=== PATIENT | female | born 1945 | race Caucasian/White ===

== ENCOUNTER → 2019-10-22 11:05 | Outpatient (BNVA) | payer BC, MEDICARE, SELFPAY | PROVIDERS: Family Provider Nurse Practitioner Family; Visit Provider Nurse Practitioner Family | DX: E78.5 Hyperlipidemia, unspecified (principal); E03.9 Hypothyroidism, unspecified; E55.9 Vitamin D deficiency, unspecified; I25.10 Atherosclerotic heart disease of native coronary artery without angina pectoris; F17.200 Nicotine dependence, unspecified, uncomplicated | CPT/HCPCS: 80053; 80061; 82306; 84443; 85025 ==

== ENCOUNTER → 2021-04-05 11:35 | Outpatient (BNVA) | payer MEDICARE, SELFPAY | PROVIDERS: Family Provider Nurse Practitioner Family; Visit Provider Nurse Practitioner Family | DX: K59.00 Constipation, unspecified (principal); I50.32 Chronic diastolic (congestive) heart failure | CPT/HCPCS: 74019; 80053; 80061; 84443; 85025 ==

== ENCOUNTER 2021-04-07 15:31 | Observation (INO) | payer MEDICARE, SELFPAY ==
[2021-04-07 16:05] VITALS: BP 106/64; PULSE 67; RESP 19; TEMP 36.7; O2SAT 94
--- NOTE | 2021-04-07 17:22 | CTR_ITS ---
PROCEDURE INFORMATION: Exam: CT Abdomen And Pelvis With Contrast Exam date and time: 04/07/2021 5:22 PM Age: 75 years old Clinical indication: Bloating; Prior surgery; Surgery type: Stents; Additional info: Abd pain, distension TECHNIQUE: Imaging protocol: Computed tomography of the abdomen and pelvis with contrast. Radiation optimization: All CT scans at this facility use at least one of these dose optimization techniques: automated exposure control; mA and/or kV adjustment per patient size (includes targeted exams where dose is matched to clinical indication); or iterative reconstruction. Contrast material: OMNI 300; Contrast volume: 95 ml; Contrast route: INTRAVENOUS (IV); COMPARISON: CR XR abdomen min 2V [id number] 04/05/2021 11:40 AM RADIATION DOSE METRICS: Total DLP (mGy-cm): 964.34 FINDINGS: Lungs: Right lower lobe 2.8 cm spiculated masslike lesion along with a left lower lobe 9.5 mm spiculated nodule, dedicated chest CT advised for further evaluation. Liver: Hepatic steatosis. 14 mm mildly complex cystic lesion in the caudal tip of the liver may reflect metastatic disease. Gallbladder and bile ducts: Normal. No calcified stones. No ductal dilation. Pancreas: Normal. No ductal dilation. Spleen: Normal. No splenomegaly. Adrenal glands: Normal. No mass. Kidneys and ureters: Bilateral benign renal cysts, negative for follow-up advised. Stomach and bowel: Prominent fluid in the colon and small bowel without dilation may reflect an enterocolitis. Diverticulosis without diverticulitis. Moderate hiatal hernia. Appendix: No evidence of appendicitis. Intraperitoneal space: Diffuse omental caking seen throughout the abdomen anteriorly likely reflecting metastatic disease. Large amount of ascites in the abdomen. Vasculature: Unremarkable. No abdominal aortic aneurysm. Lymph nodes: Unremarkable. No enlarged lymph nodes. Urinary bladder: Unremarkable as visualized. Reproductive: 13.5 x 10.2 cm solid and cystic masslike lesion is seen which may be part of the same process suggestive of an ovarian malignancy. Bones/joints: Unremarkable. No acute fracture. Soft tissues: Unremarkable. Other findings: Emphysematous changes. CT/CT abdomen pelvis w con* [id number] IMPRESSION: 1. 13.5 x 10.2 cm solid and cystic masslike lesion is seen which may be part of the same process suggestive of an ovarian malignancy. 2. Diffuse omental caking seen throughout the abdomen anteriorly likely reflecting metastatic disease. 3. Prominent fluid in the colon and small bowel without dilation may reflect an enterocolitis. 4. Right lower lobe 2.8 cm spiculated masslike lesion along with a left lower lobe 9.5 mm spiculated nodule, dedicated chest CT advised for further evaluation. 5. Emphysematous changes. 6. Large amount of ascites in the abdomen. 7. Hepatic steatosis. 8. Bilateral benign renal cysts, negative for follow-up advised. 9. Diverticulosis without diverticulitis. 10. 14 mm mildly complex cystic lesion in the caudal tip of the liver may reflect metastatic disease. 11.Moderate hiatal hernia. Radiation Dose CTDIVOL = (mGy): DLP = 964.34 (mGy-cm)
--- NOTE | 2021-04-07 17:24 | ECG_ITS ---
[facility] Test Date: 2021-04-07 Pat Name: Nissa Long Department: Room: Gender: Female [employer]: : 1945 Requested By: Sarabjit Nunez Order Number: [id number] Diana MD: Loy Kern M.D. Measurements Intervals [place] Rate: 66 P: 55 IL: 212 QRS: 3 QRSD: 158 T: 99 QT: 435 QTc: 459 Interpretive Statements SINUS RHYTHM WITH FIRST DEGREE AV BLOCK LEFT BUNDLE BRANCH BLOCK [120+ ms QRS DURATION, 80+ ms Q/S IN V1/V2, 85+ ms R IN I/aVL/V5/V6] No previous ECG available for comparison Electronically Signed On 04-07-2021 19:40:00 CDT by Loy Kern M.D. [id number]
[2021-04-07 17:52] VITALS: BP 125/62; PULSE 66; RESP 16; O2SAT 98
[2021-04-07 17:53] LABS: Basophils # 0.1 10^3/uL (0.0-0.1); Basophils % 0.4 %; Eosinophils # 0.1 10^3/uL (0.0-0.8); Eosinophils % 0.5 %; Hematocrit 40.2 % (37.0-47.0); Hemoglobin 13.1 g/dL (11.5-15.3); Lymphocytes # 1.8 10^3/uL (0.8-4.8); Lymphocytes % 13.4 %; Mean Corpuscular HGB Conc 32.6 g/dL (30.0-36.0); Mean Corpuscular Hemoglobin 29.2 pg (28.0-34.0); Mean Corpuscular Volume 89.5 fl (81-99); Mean Platelet Volume 9.9 fL (7.4-10.4); Monocytes # 1.1 10^3/uL (0.2-0.9); Monocytes % 7.9 %; Neutrophils # 10.24 10^3/uL (1.8-7.7); Neutrophils % 77.3 %; Nucleated Red Blood Cells % 0 %; Platelet Count 341 10^3/cmm (130-400); Red Blood Count 4.49 10^6/uL (4.1-5.3); Red Cell Distribution Width 13.2 % (12.1-15.1); White Blood Count 13.2 10^3/uL (4.0-10.0)
--- NOTE | 2021-04-07 17:53 | ED_ITS ---
Documented by User: Sarabjit Nunez MD 04/07/21 17:57 HPI - General Adult General: Chief complaint: Abdominal Pain Stated complaint: PCP DX: BOWEL OBSTRUCTION Time Seen by Provider: 04/07/21 17:08 History of Present Illness: HPI narrative: Donato is a 75-year-old female with history of CAD s/p stent x2, hypertension, hyperlipidemia who presents the emergency room with constipation and inability to really fell x3 weeks. Patient ports that she was able to pass hard stool occasionally. Patient says that she has not had any flatus in this time. Today, she went to see her primary care provider and was told to go to the emergency room. Patient started MiraLAX and polyethylene glycol since Monday. Has not had any improvement in bowel symptoms. Denies any melena or hematochezia, nausea, vomiting, fever, chills, chest pain shortness of breath, palpitation, or other complaints at this time. No hx of abdominal surgeries. Onset 3 weeks ago Duration:3 weeks Location:home Severity:moderate Review of Systems Narrative: Constitutional: No fever, no chills. HEENT: No vision changes CV: No chest pain, no palpitations PULM: no cough, no dyspnea. GI: No abdominal pain, no N/V/D. +constipation, +abdominal discomfort : No dysuria MSKEL: No muscle pain SKIN: No new rashes, no lesions. NEURO: No headache, no focal weakness. HEME: No visible bruises PSYCH: Normal mood PFSH ED PFSH: Medical History (Updated 04/07/21 @ 19:25 by Pepper Johnson MD) ASHD (arteriosclerotic heart disease) Atherosclerosis of coronary artery of robinson heart without angina pectoris Benign essential HTN CHF (congestive heart failure) Congestive heart failure Dyslipidemia History of hypertension History of tobacco use Hyperlipidemia Hypothyroid Vitamin D deficiency Social History Smoking and tobacco status: current every day smoker Quit status (tobacco): has quit using tobacco Year quit tobacco: 2010 Former quit date comment: PPD x 30 Second hand smoke exposure: No Alcohol intake: never Lives independently: Yes Household members: none Marital status: service: No Current occupational status: employed Current occupation: [email or web address] History of recent travel: No Current gender identity: Female Special sherry needs: No Agree to transfusion: Yes Female Reproductive History: Date of last menstrual period: 10/29/20 Physical Exam Narrative: EXAM NARRATIVE: Head: Atraumatic Eyes: PERRL, conjunctiva without injection ENT: Mucous membrane moist NECK: Supple, ROM intact LUNGS: LCTAB, no crackles/rhonchi CV: RRR ABDOMEN: Soft, +mild abdominal distension, no guarding / rebound tenderness, no Kam's sign, no McBurney's point tenderness, no CVA tenderness, no suprapubic tenderness EXTREMITY: Normal ROM SKIN: No rash or erythema NEURO: Awake and alert, no focal motor deficits PSYCH: Normal mood and affect Course Vital Signs: Vital signs: Vital Signs Temperature 98.1 F 04/07/21 16:05 Pulse Rate 68 04/07/21 18:27 Respiratory Rate 18 04/07/21 18:27 Blood Pressure 114/66 04/07/21 18:27 Pulse Oximetry 98 04/07/21 18:27 MDM - General Adult MDM Narrative: Medical decision making narrative: 75-year-old female who presents the emergency room with symptoms of constipation x3 weeks despite using MiraLAX polyethylene glycol since Monday. On exam, patient has no focal tenderness palpation. Hemodynamically stable. We will order imaging at this time to rule a steracolitis. Case has been signed out to Dr. Johnson pending labs and CT evaluation. Lab Data: Labs: Lab Results 04/07/21 04/07/21 04/07/21 Range/Units 17:47 17:47 17:47 WBC 13.2 H (4.0-10.0) 10^3/ uL RBC 4.49 (4.1-5.3) 10^6/u L Hgb 13.1 (11.5-15.3) g/dL Hct 40.2 (37.0-47.0) % MCV 89.5 (81-99) fl MCH 29.2 (28.0-34.0) pg MCHC 32.6 (30.0-36.0) g/dL RDW 13.2 (12.1-15.1) % Plt Count 341 (130-400) 10^3/c mm MPV 9.9 (7.4-10.4) fL Neut % (Auto) 77.3 % Lymph % (Auto) 13.4 % [place] % (Auto) 7.9 % Eos % (Auto) 0.5 % Baso % (Auto) 0.4 % Neut # (Auto) 10.24 H (1.8-7.7) 10^3/u L Lymph # (Auto) 1.8 (0.8-4.8) 10^3/u L [place] # (Auto) 1.1 H (0.2-0.9) 10^3/u L Eos # (Auto) 0.1 (0.0-0.8) 10^3/u L Baso # (Auto) 0.1 (0.0-0.1) 10^3/u L Nucleated RBC % (a uto) 0 % Nucleated RBCs # 0.0 /100WBC Sodium 126 L (136-145) mmol/L Potassium 4.9 (3.5-5.1) mmol/L Chloride 91 L (98-107) mmol/L Carbon Dioxide 23 (22-29) mmol/L Anion Gap 16.9 (5-19) BUN 7 L (8-23) mg/dL Creatinine 0.4 L (0.5-0.9) mg/dL GFR Calculation Not Reportable Glucose 73 (65-115) mg/dL Calculated Osmolal ity 259 L (285-295) mOsm/k g Calcium 7.8 L (8.5-10.5) mg/dL Total Bilirubin 0.4 (0.15-1.2) mg/dL AST 25 (0-32) U/L ALT 12 (0-33) U/L Alkaline Phosphata se 119 H (35-105) IU/L Troponin T Gen 5 n g/L 10 (0-10) ng/L Total Protein 5.6 L (6.6-8.7) g/dL Albumin 3.4 L (3.5-5.2) g/dL Globulin 2.2 (1.3-4.6) g/dL Lipase 26 (13-60) U/L Discharge Plan Discharge Patient Disposition: Admitted As Inpatient Clinical Impression: Acute hyponatremia, Ovarian mass Condition: Stable Coding Level of Care Code ED Credit Product Analyst for Chg Fwd Documented by User: Pepper Johnson MD 04/07/21 19:26 HPI - General Adult General: Chief complaint: Abdominal Pain Stated complaint: PCP DX: BOWEL OBSTRUCTION Time Seen by Provider: 04/07/21 17:08 PFSH ED PFSH: Medical History (Updated 04/07/21 @ 19:25 by Pepper Johnson MD) ASHD (arteriosclerotic heart disease) Atherosclerosis of coronary artery of robinson heart without angina pectoris Benign essential HTN CHF (congestive heart failure) Congestive heart failure Dyslipidemia History of hypertension History of tobacco use Hyperlipidemia Hypothyroid Vitamin D deficiency Social History Smoking and tobacco status: current every day smoker Quit status (tobacco): has quit using tobacco Year quit tobacco: 2010 Former quit date comment: PPD x 30 Second hand smoke exposure: No Alcohol intake: never Lives independently: Yes Household members: none Marital status: service: No Current occupational status: employed Current occupation: [email or web address] History of recent travel: No Current gender identity: Female Special sherry needs: No Agree to transfusion: Yes Course Vital Signs: Vital signs: Vital Signs Temperature 98.1 F 04/07/21 16:05 Pulse Rate 68 04/07/21 18:27 Respiratory Rate 18 04/07/21 18:27 Blood Pressure 114/66 04/07/21 18:27 Pulse Oximetry 98 04/07/21 18:27 MDM - General Adult MDM Narrative: Medical decision making narrative: Patient presents here with abdominal pain constipation along with some confusion. 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 Spoke to patient will admit for her hyponatremia. She has no signs of obstruction. Spoke to hospitalist and will admit. Lab Data: Labs: Lab Results 04/07/21 04/07/21 04/07/21 Range/Units 17:47 17:47 17:47 WBC 13.2 H (4.0-10.0) 10^3/ uL RBC 4.49 (4.1-5.3) 10^6/u L Hgb 13.1 (11.5-15.3) g/dL Hct 40.2 (37.0-47.0) % MCV 89.5 (81-99) fl MCH 29.2 (28.0-34.0) pg MCHC 32.6 (30.0-36.0) g/dL RDW 13.2 (12.1-15.1) % Plt Count 341 (130-400) 10^3/c mm MPV 9.9 (7.4-10.4) fL Neut % (Auto) 77.3 % Lymph % (Auto) 13.4 % [place] % (Auto) 7.9 % Eos % (Auto) 0.5 % Baso % (Auto) 0.4 % Neut # (Auto) 10.24 H (1.8-7.7) 10^3/u L Lymph # (Auto) 1.8 (0.8-4.8) 10^3/u L [place] # (Auto) 1.1 H (0.2-0.9) 10^3/u L Eos # (Auto) 0.1 (0.0-0.8) 10^3/u L Baso # (Auto) 0.1 (0.0-0.1) 10^3/u L Nucleated RBC % (a uto) 0 % Nucleated RBCs # 0.0 /100WBC Sodium 126 L (136-145) mmol/L Potassium 4.9 (3.5-5.1) mmol/L Chloride 91 L (98-107) mmol/L Carbon Dioxide 23 (22-29) mmol/L Anion Gap 16.9 (5-19) BUN 7 L (8-23) mg/dL Creatinine 0.4 L (0.5-0.9) mg/dL GFR Calculation Not Reportable Glucose 73 (65-115) mg/dL Calculated Osmolal ity 259 L (285-295) mOsm/k g Calcium 7.8 L (8.5-10.5) mg/dL Total Bilirubin 0.4 (0.15-1.2) mg/dL AST 25 (0-32) U/L ALT 12 (0-33) U/L Alkaline Phosphata se 119 H (35-105) IU/L Troponin T Gen 5 n g/L 10 (0-10) ng/L Total Protein 5.6 L (6.6-8.7) g/dL Albumin 3.4 L (3.5-5.2) g/dL Globulin 2.2 (1.3-4.6) g/dL Lipase 26 (13-60) U/L Imaging Data^: CT Abd/Pel: Attestation: I personally reviewed and interpreted this imaging study as follows: Radiologist's impression: [facility] [place] [address] CT Scan Report Signed Patient: Nissa Long Unit #: [id number] : 1945 Age/Sex: 75 / F ADM Date: 04/07/21 Loc: ER Room/Bed: Attending Dr: Ordering Provider/Ordering MD: Sarabjit Nunez MD Date of Service: 04/07/21 Procedure(s): CT abdomen pelvis w con* [id number] Accession Number(s): [id number] Report Number: [id number] PROCEDURE INFORMATION: Exam: CT Abdomen And Pelvis With Contrast Exam date and time: 04/07/2021 5:22 PM Age: 75 years old Clinical indication: Bloating; Prior surgery; Surgery type: Stents; Additional info: Abd pain, distension TECHNIQUE: Imaging protocol: Computed tomography of the abdomen and pelvis with contrast. Radiation optimization: All CT scans at this facility use at least one of these dose optimization techniques: automated exposure control; mA and/or kV adjustment per patient size (includes targeted exams where dose is matched to clinical indication); or iterative reconstruction. Contrast material: OMNI 300; Contrast volume: 95 ml; Contrast route: INTRAVENOUS (IV); COMPARISON: CR XR abdomen min 2V [id number] 04/05/2021 11:40 AM RADIATION DOSE METRICS: Total DLP (mGy-cm): 964.34 FINDINGS: Lungs: Right lower lobe 2.8 cm spiculated masslike lesion along with a left lower lobe 9.5 mm spiculated nodule, dedicated chest CT advised for further evaluation. Liver: Hepatic steatosis. 14 mm mildly complex cystic lesion in the caudal tip of the liver may reflect metastatic disease. Gallbladder and bile ducts: Normal. No calcified stones. No ductal dilation. Pancreas: Normal. No ductal dilation. Spleen: Normal. No splenomegaly. Adrenal glands: Normal. No mass. Kidneys and ureters: Bilateral benign renal cysts, negative for follow-up advised. Stomach and bowel: Prominent fluid in the colon and small bowel without dilation may reflect an enterocolitis. Diverticulosis without diverticulitis. Moderate hiatal hernia. Appendix: No evidence of appendicitis. Intraperitoneal space: Diffuse omental caking seen throughout the abdomen anteriorly likely reflecting metastatic disease. Large amount of ascites in the abdomen. Vasculature: Unremarkable. No abdominal aortic aneurysm. Lymph nodes: Unremarkable. No enlarged lymph nodes. Urinary bladder: Unremarkable as visualized. Reproductive: 13.5 x 10.2 cm solid and cystic masslike lesion is seen which may be part of the same process suggestive of an ovarian malignancy. Bones/joints: Unremarkable. No acute fracture. Soft tissues: Unremarkable. Other findings: Emphysematous changes. CT/CT abdomen pelvis w con* [id number] IMPRESSION: 1. 13.5 x 10.2 cm solid and cystic masslike lesion is seen which may be part of the same process suggestive of an ovarian malignancy. 2. Diffuse omental caking seen throughout the abdomen anteriorly likely reflecting metastatic disease. 3. Prominent fluid in the colon and small bowel without dilation may reflect an enterocolitis. 4. Right lower lobe 2.8 cm spiculated masslike lesion along with a left lower lobe 9.5 mm spiculated nodule, dedicated chest CT advised for further evaluation. 5. Emphysematous changes. 6. Large amount of ascites in the abdomen. 7. Hepatic steatosis. 8. Bilateral benign renal cysts, negative for follow-up advised. 9. Diverticulosis without diverticulitis. 10. 14 mm mildly complex cystic lesion in the caudal tip of the liver may reflect metastatic disease. 11.Moderate hiatal hernia. Radiation Dose CTDIVOL = (mGy): DLP = 964.34 (mGy-cm) Dictated By: Eulogio Merlos MD Signed By: Eulogio Merlos MD Signed Date/Time: 04/07/211834 DD/ 33 Discharge Plan Discharge Patient Disposition: Admitted As Inpatient Clinical Impression: Acute hyponatremia, Ovarian mass Condition: Stable Coding Level of Care Code ED Credit Product Analyst for Magi Yu
[2021-04-07 18:17] LABS: Troponin T (5th) Once 10 ng/L (0-10)
[2021-04-07 18:18] LABS: Alanine Aminotransferase 12 U/L (0-33); Albumin Level 3.4 g/dL (3.5-5.2); Alkaline Phosphatase 119 IU/L (35-105); Aspartate Amino Transferase 25 U/L (0-32); Blood Urea Nitrogen 7 mg/dL (8-23); Calcium 7.8 mg/dL (8.5-10.5); Carbon Dioxide 23 mmol/L (22-29); Chloride 91 mmol/L (98-107); Globulin 2.2 g/dL (1.3-4.6); Glucose 73 mg/dL (65-115); Lipase 26 U/L (13-60); Osmolality Calculated 259 mOsm/kg (285-295); Sodium 126 mmol/L (136-145); Total Bilirubin 0.4 mg/dL (0.15-1.2); Total Protein 5.6 g/dL (6.6-8.7)
[2021-04-07] MEDS: iohexol 300 mg/mL 100 mL Btl IV (18:19)
[2021-04-07 18:20] LABS: Anion Gap 16.9 (5-19); Potassium 4.9 mmol/L (3.5-5.1)
[2021-04-07] MEDS: famotidine 20 mg/2 mL INJ IVP (18:24)
[2021-04-07 18:27] VITALS: BP 114/66; PULSE 68; RESP 18; O2SAT 98
[2021-04-07] MEDS: sodium chloride 0.9% 1,000 ML 999 ML IV (19:07)
--- NOTE | 2021-04-07 19:45 | P.HP_ITS ---
Providers/Chief Complaint Admitting Physician: Luzmaria Ramesh MD Primary Care Provider: SIRIA Callaway Chief Complaint: PCP DX: BOWEL OBSTRUCTION History of Present Illness Nissa Long is a 75 year old female who presented to the emergency room with chief complaint of constipation over the last few weeks. She had been taking stool softeners and agom-uko-ppfrerp laxatives and recently tried an enema and some GoLYTELY. Since taking the GoLYTELY she has had only watery output. She has had some cramping at times. She has had some increased abdominal distention and what she feels has been some weight gain. Denies tisha abdominal pain per se. Sometime within the last week she also realized that she had a vaginal prolapse. She had been seen by her primary care provider on April 05. She has not had any improvement since then and came to the emergency room for further evaluation given the persistence of problems. She denied any nausea or vomiting but admits she has not been eating as much. No fever. Other than the vaginal prolapse, denies any burning or stinging with urination or any hematuria. Has not noted any blood in the liquid output that she has been experiencing. She says that prior to 2 to 3 weeks ago her normal bowel pattern was to have a bowel movement every few days, maybe a couple of times a week for many years. She does have a history of thyroid disease for which she has been on chronic levothyroxine replacement. TSH was checked at her PCPs office a couple of days ago and was found to be elevated around 9. Has not had any recent dosage changes and denies noncompliance with her medication. Last available comparative TSH was from October 2019 when it was normal. Free T3 and free T4 were checked in the emergency room today and her free T3 is a bit low although free T4 is normal. In addition to this she is on chronic vitamin D supplementation due to vitamin D deficiency. In the emergency room she received some IV fluids and had a CAT scan of her abdomen and pelvis done as there was some concern about an obstructive process. Unfortunately CT of the abdomen and pelvis revealed a rather large mass that appeared to be ovarian. Also noted was diffuse omental caking, large amount of ascites, right lower lobe 2.8 cm spicu lated mass, left lower lobe 9.5 mm spiculated nodule and a 14 mm complex cystic lesion in the caudal tip of the liver possibly also reflecting metastatic disease. 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 Patient sodium was noted to be low. Given the abdominal symptoms, hyponatremia and abnormalities identified she is being admitted to overnight observation to provide some fluids, supportive care for constipation and consider paracentesis. Review of Systems Const: Reports: change in appetite (decrease), change in weight (gain) and fatigue; Denies: fever(s) or chills ENMT: Denies: throat pain or nasal congestion Card: Denies: chest pain, palpitations or edema Resp: Denies: dyspnea, productive cough or non-productive cough GI: Reports: early satiety, diarrhea (watery stools since laxatives), constipation, GI cramping and change in bowel habits (last 3 weeks); Denies: abdominal pain, nausea, vomiting, hematochezia or melena : Reports: urinary incontinence and prolapse symptoms; Denies: difficulty voiding, urinary frequency or hematuria Musc: Reports: muscle weakness; Denies: back pain or extremity pain Skin/Breast: Denies: pruritus or sores Neuro: Denies: headache(s) or difficulty walking Psych: Reports: memory loss Ag/Lymph: Denies: easy bruising or easy bleeding Medications/Allergies Home Medications Medication Instructions Recorded Confirmed Last Taken Type cholecalciferol (vitamin D3) 75 75 mcg PO DAILY 06/23/20 04/07/21 04/07/21 History mcg (3,000 unit) tablet aspirin 81 mg tablet,delayed 81 mg PO DAILY #90 tab 10/21/20 04/07/21 04/07/21 Rx release atorvastatin 40 mg tablet 40 mg PO DAILY #90 tab 10/21/20 04/07/21 04/06/21 Rx clopidogrel 75 mg tablet 75 mg PO DAILY #90 tab 10/21/20 04/07/21 04/07/21 Rx enalapril maleate 5 mg tablet 5 mg PO BID #180 tab 10/21/20 04/07/21 04/07/21 Rx levothyroxine 112 mcg tablet 112 mcg PO DAILY #90 tab 10/21/20 04/07/21 04/07/21 Rx carvedilol 3.125 mg PO BID 04/07/21 04/07/21 04/07/21 History spironolactone 25 mg PO DAILY 04/07/21 04/07/21 04/07/21 History Allergies Allergy/AdvReac Type Severity Reaction Status Date / Time No Known Allergies Allergy Verified 04/07/21 16:05 PFSH Acute PFSH: Medical History (Updated 04/07/21 @ 21:59 by Luzmaria Ramesh MD) Atherosclerosis of coronary artery of [place] heart without angina pectoris Benign essential HTN Congestive heart failure EF 55% last echocardiogram with grade 1 diastolic dysfunction Dyslipidemia History of tobacco use Hyperlipidemia Hypothyroid Vitamin D deficiency Surgical History (Updated 04/07/21 @ 21:51 by Luzmaria Ramesh MD) History of percutaneous coronary intervention (~2011) Family History (Updated 04/07/21 @ 21:53 by Luzmaria Ramesh MD) Brother Cancer unknown kind CAD (coronary artery disease) Social History (Updated 04/07/21 @ 21:53 by Luzmaria Ramesh MD) Smoking and tobacco status: current every day smoker Alcohol intake: never Substance/Drug Use: never Lives independently: Yes Household members: other Details: daughters live nearby service: No Current occupational status: employed Current occupation: works at [employer] in [facility] Current gender identity: Female Special sherry needs: No Agree to transfusion: Yes Vitals/I&O/Wt Last Vital Signs Temp 98.1 F 04/07/21 16:05 Pulse 68 04/07/21 18:27 Resp 18 04/07/21 18:27 BP 114/66 04/07/21 18:27 Pulse Ox 98 04/07/21 18:27 Weight last 48 hrs Weight 55.338 kg Physical Exam Narrative: EXAM NARRATIVE: Constitutional: Awake and alert, thin build, cooperative, looks tired HEENT: Normocephalic, atraumatic, extraocular movements are intact, pupils reactive, nasopharynx is clear, oropharynx with dry mucous membranes but clear Neck: Supple Respiratory: Clear to auscultation bilaterally without any rales rhonchi or wheezes Cardiovascular: Regular rhythm, no murmurs or rubs Abdomen: Soft, no tenderness, mildly distended, decreased bowel sounds : Normal labia, visual inspection, with nurse present, reveals approximately 2-1/2 cm diameter bulging periurethral and vaginal tissue. Appears to originate on left side of the urethral meatus, with vaginal mucosa/rugae only noted on the posterior or caudal side of the prolapse. Prior to reduction, the urethral meatus itself was seen completely and the prolapse did not involve the urethra itself that I could tell. Tissue pink without any lesions seen. Using K-Y jelly, very easily reduced with no pain. No bulging noted by me along the vaginal vault other than at the meatus. Extremities: No pitting edema or calf pain Skin: Dry, bruising and soft tissue nodularity to right forearm and hand, respectively, where she says she hit is on a door frame recently, lesser degree of bruising to left forearm, some scratches to left knee from her cat, healing Neuro: Speech clear, face symmetric, moves all extremities, able to rise from a seated position without assistance to standing Psych: Normal affect, oriented to person place and situation, acknowledges that she would like her granddaughter to make decisions for her as she has POA : GENITAL IMAGES (FEMALE): 1. prolapse seen here Data : 04/07/21 17:47 04/07/21 17:47 Other Labs: Laboratory Results WBC 13.2 10^3/uL (4.0-10.0) H 04/07/21 17:47 RBC 4.49 10^6/uL (4.1-5.3) 04/07/21 17:47 Hgb 13.1 g/dL (11.5-15.3) 04/07/21 17:47 Hct 40.2 % (37.0-47.0) 04/07/21 17:47 MCV 89.5 fl (81-99) 04/07/21 17:47 MCH 29.2 pg (28.0-34.0) 04/07/21 17:47 MCHC 32.6 g/dL (30.0-36.0) 04/07/21 17:47 RDW 13.2 % (12.1-15.1) 04/07/21 17:47 Plt Count 341 10^3/cmm (130-400) 04/07/21 17:47 MPV 9.9 fL (7.4-10.4) 04/07/21 17:47 Neut % (Auto) 77.3 % 04/07/21 17:47 Lymph % (Auto) 13.4 % 04/07/21 17:47 [place] % (Auto) 7.9 % 04/07/21 17:47 Eos % (Auto) 0.5 % 04/07/21 17:47 Baso % (Auto) 0.4 % 04/07/21 17:47 Neut # (Auto) 10.24 10^3/uL (1.8-7.7) H 04/07/21 17:47 Lymph # (Auto) 1.8 10^3/uL (0.8-4.8) 04/07/21 17:47 [place] # (Auto) 1.1 10^3/uL (0.2-0.9) H 04/07/21 17:47 Eos # (Auto) 0.1 10^3/uL (0.0-0.8) 04/07/21 17:47 Baso # (Auto) 0.1 10^3/uL (0.0-0.1) 04/07/21 17:47 Nucleated RBC % (auto) 0 % 04/07/21 17:47 Nucleated RBCs # 0.0 /100WBC 04/07/21 17:47 Sodium 126 mmol/L (136-145) L 04/07/21 17:47 Potassium 4.9 mmol/L (3.5-5.1) 04/07/21 17:47 Chloride 91 mmol/L (98-107) L 04/07/21 17:47 Carbon Dioxide 23 mmol/L (22-29) 04/07/21 17:47 Anion Gap 16.9 (5-19) 04/07/21 17:47 BUN 7 mg/dL (8-23) L 04/07/21 17:47 Creatinine 0.4 mg/dL (0.5-0.9) L 04/07/21 17:47 GFR Calculation Not Reportable 04/07/21 17:47 Glucose 73 mg/dL (65-115) 04/07/21 17:47 Calculated Osmolality 259 mOsm/kg (285-295) L 04/07/21 17:47 Calcium 7.8 mg/dL (8.5-10.5) L 04/07/21 17:47 Total Bilirubin 0.4 mg/dL (0.15-1.2) 04/07/21 17:47 AST 25 U/L (0-32) 04/07/21 17:47 ALT 12 U/L (0-33) 04/07/21 17:47 Alkaline Phosphatase 119 IU/L (35-105) H 04/07/21 17:47 Troponin T Gen 5 ng/L 10 ng/L (0-10) 04/07/21 17:47 Total Protein 5.6 g/dL (6.6-8.7) L 04/07/21 17:47 Albumin 3.4 g/dL (3.5-5.2) L 04/07/21 17:47 Globulin 2.2 g/dL (1.3-4.6) 04/07/21 17:47 Lipase 26 U/L (13-60) 04/07/21 17:47 Urine Color Yellow (Yellow) 04/07/21 19:20 Urine Appearance Clear (CLEAR) 04/07/21 19:20 Urine pH 8 (5-7) H 04/07/21 19:20 Ur Specific [place] 1.005 (1.005-1.030) 04/07/21 19:20 Urine Protein Neg (Negative) 04/07/21 19:20 Urine Glucose (UA) Norm (Normal) 04/07/21 19:20 Urine Ketones 1+ (Negative) H 04/07/21 19:20 Urine Blood Neg (Negative) 04/07/21 19:20 Urine Nitrate Negative (Negative) 04/07/21 19:20 Urine Bilirubin Neg (Negative) 04/07/21 19:20 Prot Sulfosalicylic Acd Negative (Negative) 04/07/21 19:20 Urine Urobilinogen Neg mg/dL (Negative) 04/07/21 19:20 Ur Leukocyte Esterase 1+ (Negative) H 04/07/21 19:20 Urine RBC None /hpf (0-2) 04/07/21 19:20 Urine WBC 0-4 /hpf (0-5) H 04/07/21 19:20 Ur Squamous Epith Cells 0-4 /hpf (0-5) H 04/07/21 19:20 Amorphous Sediment Not Reportable 04/07/21 19:20 Urine Bacteria 2+ /hpf (NONE) H 04/07/21 19:20 Urine Mucus 1+ /hpf 04/07/21 19:20 Urine Yeast 1+ /hpf H 04/07/21 19:20 Impressions Abdomen/Pelvis CT 04/07/21 17:22 IMPRESSION: 1. 13.5 x 10.2 cm solid and cystic masslike lesion is seen which may be part of the same process suggestive of an ovarian malignancy. 2. Diffuse omental caking seen throughout the abdomen anteriorly likely reflecting metastatic disease. 3. Prominent fluid in the colon and small bowel without dilation may reflect an enterocolitis. 4. Right lower lobe 2.8 cm spiculated masslike lesion along with a left lower lobe 9.5 mm spiculated nodule, dedicated chest CT advised for further evaluation. 5. Emphysematous changes. 6. Large amount of ascites in the abdomen. 7. Hepatic steatosis. 8. Bilateral benign renal cysts, negative for follow-up advised. 9. Diverticulosis without diverticulitis. 10. 14 mm mildly complex cystic lesion in the caudal tip of the liver may reflect metastatic disease. 11.Moderate hiatal hernia. Radiation Dose CTDIVOL = (mGy): DLP = 964.34 (mGy-cm) A&P Assessment and plan (1) Constipation: Presenting complaint to primary care provider yesterday without relief despite stool softeners, laxatives, enema and GoLYTELY Status: Acute Qualifiers: Constipation type: outlet dysfunction constipation Qualified Code(s): K59.02 - Outlet dysfunction constipation (2) Acute hyponatremia: Sodiums were normal a year ago, very well could be secondary to recent laxatives, golytely, liquid stools and diuretic therapy but with spiculated nodules in the lungs and other abnormalities identified, SIADH is also a consideration Status: Acute (3) Ovarian mass: Identified on CT imaging with evidence of omental caking suggestive of omental metastases, 2 spiculated nodules in the lungs and abnormality in the liver. Findings are highly suggestive of metastatic ovarian cancer. Denies any weight loss, in fact feels like she has gained weight with abdominal distention from associated ascites. This is a new diagnosis that has understandably come as a shock to patient's daughter as well as to her. Status: Acute (4) Vaginal prolapse: Presented itself this week, easily reducible presently Status: Acute (5) Memory problem: Described by family is slowly worsening over the last year or so. 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 Status: Acute (6) Hypothyroid: With elevated TSH and low free T3 on laboratory studies done yesterday at PCP office, reports compliance with medications. Has been on levothyroxine 112 mcg daily for some time. 04/05/21 04/07/21 11:59 09:02 TSH 9.89 H Free T4 1.47 Free T3 1.4 L Status: Chronic Qualifiers: Hypothyroidism type: acquired Qualified Code(s): E03.9 - Hypothyroidism, unspecified Additional A&P Information Abnormal urinalysis that I suspect is a contaminated specimen given lack of specific urinary symptoms, vaginal prolapse and epithelial cells Elevation in white count without fever or symptoms beyond those described Nicotine dependence with cigarettes since age 11 History of hypertension chronically on enalapril and spironolactone along with carvedilol History of CHF with EF of 55% and grade 1 diastolic dysfunction on last echocardiogram in 2018 History of coronary artery disease with intervention in 2011, no anginal symptoms, chronically on aspirin and Plavix with last doses April 07 History of hyperlipidemia on chronic statin therapy History of vitamin D deficiency on chronic replacement -Observation admission for now -Reviewed the case briefly, without exchange of patient identifiers, with on- call oncology, Dr. Colindres, to discuss approach for tissue diagnosis -Ultrasound-guided paracentesis in the morning with cytology to start -Check CA-125, CA 19 9 and CEA -Depending on patient and family desires once diagnosis confirmed will need additional staging workup Have spoken with patient's granddaughter, Ishmael Lee at phone number [phone]. She is the patient's DPOA and Mrs. Long has indicated that she wants Ms. Lee to make decisions for her. Ishmael Lee should be contacted for any consents, discussions and decision making. Ms. Lee is a nurse practitioner with good understanding of the significance of the abnormalities identified tonight on CT imaging. She has given consent for paracentesis tomorrow, as did the patient, to help get a tissue diagnosis for clarification. She indicated that most likely no further evaluation or intervention or treatment would be desired except that which might make Mrs. Long more comfortable. She is related through family to Mary Figueroa former oncology nurse practitioner here and has already spoken with her about the situation. She has a realistic view of prognosis but would be willing to talk with oncology after tissue diagnosis is made to review things further. I also spoke with the patient's daughter, Franny Manning, although she is understandably emotional right now. Mrs. Manning rather than Ms. Lee will be here during visiting hours but again any information needed to be relayed regarding testing, diagnosis or plans should be communicated to Mrs. Lee. -Colace and Senokot scheduled -Hold vitamin D replacement as can contribute to constipation -Check urine electrolytes and uric acid -Received fluid bolus in the emergency room; will provide low volume IV fluids tonight while n.p.o. for procedure tomorrow -Recheck electrolytes in the morning -Hold Aldactone and enalapril -Continue carvedilol and statin therapy -Aspirin and Plavix presently held though anticipate being able to resume at discharge -We will increase levothyroxine to 125 mcg, will need outpatient follow-up -Was able to easily reduce the vaginal prolapse, reviewed with patient the imp ortance of ensuring that the vaginal tissue stays moist. Explained/demonstrated how she can push it back in herself and that if it is ever not able to be pushed back in she should let somebody know. Discussed with Dr Siddiqui, sleeping car conductor [facility]. There are pessaries that can help with this and he is happy to see her outpatient to address. If Mrs Long is referred to [facility], recommendation is to see Dr Meade in [place]. They could also potentially address prolapse/pessary evaluation. Supportive care in the interim is acceptable. -Follow-up urine culture that was ordered by the ER physician -I have not instituted any antibiotics currently as only finding suggestive of possible acute infection is the slight elevation in white blood count and abnormal but contaminated appearing urine specimen along with liquid stools after laxative therapy. Plan to recheck CBC in the morning and get peritoneal fluid before considering empiric therapy given current hemodynamic stability and lack of definitive foci of acute infection. -Low-dose nicotine patch if needed for nicotine withdrawal, has smoked since she was 11 and not interested in trying to quit at this point in her life -SCDs for DVT prophylaxis, no pharmacological prophylaxis secondary to planned procedure tomorrow -At discharge consideration will need to be given to outpatient oncology and [facility] appointments (PCP has already initiated a referral to [facility] secondary to vaginal prolapse), along with close PCP follow-up for support. -Anticipate discharge home, she lives alone but family is right by and supp ortive -Findings, concerns and plans were discussed openly with patient, her daughter and her granddaughter and all were given an opportunity to ask questions. -CODE STATUS was discussed with patient's granddaughter after patient asked for her to make decision and CODE STATUS is allow natural consistent with both patient's previously expressed desires and current clinical findings suggestive of poor long-term prognosis. Patient's granddaughter, Ishmael Lee [phone] should be contacted to discuss planned testing, consents, discussions regarding diagnosis and future plans as she is DPOA. Patient herself has some memory issues and patient's daughter, who will be here, is understandably emotional currently. Both the patient and her daughter request that discussions be had with Ms. Lee who is a nurse practitioner. Attestations Medical Necessity Statement*: Currently anticipate a stay less than 2 midnights in a patient presenting with constipation, not responding to outpatient management, found to have hyponatremia and findings highly suggestive of ovarian cancer with metastases as described. She has ascites. Current plan is to check some additional labs, monitor her sodium and perform ultrasound-guided paracentesis to get tissue diagnosis and see if she gets any symptomatic relief with this. Other plans and issues as noted above. 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
[2021-04-07 19:47] LABS: Glucose Urine UA Norm (Normal); Ketones Urine 1+ (Negative); Protein Urine Neg (Negative); Specific Gravity, Urine 1.005 (1.005-1.030); Urine Appearance Clear (CLEAR); Urine Color Yellow (Yellow); pH Urine 8 (5-7)
[2021-04-07 19:48] LABS: Add Urine Microscopic? YES; Bacteria Urine 2+ /hpf; Bilirubin Urine Neg (Negative); Blood Urine Neg (Negative); Leukocyte Esterase Urine 1+ (Negative); Nitrate Urine Negative (Negative); Squamous Epithelial Cell Urine 0-4 /hpf (0-5); Sulfosalicylic Acid Urine Negative (Negative); Urobilinogen Urine Neg (Negative); WBC Urine 0-4 /hpf (0-5)
[2021-04-07 19:49] LABS: Add Urine Culture? Yes; Mucus Urine 1+ /hpf
[2021-04-07 20:15] VITALS: BP 129/67; PULSE 90; RESP 19; O2SAT 97
[2021-04-07 21:17] VITALS: BP 124/67; PULSE 65; RESP 18; TEMP 36.5; O2SAT 97
[2021-04-07] MEDS: sennosides 8.6 mg Tablet 17.2 MG PO (22:45)
[2021-04-07 23:38] VITALS: BP 101/60; PULSE 64; RESP 20; TEMP 37; O2SAT 96
[2021-04-08] VITALS (8 sets, daily range): BP systolic 91–112; BP diastolic 51–67; PULSE 61–68; RESP 16–24; TEMP 36.4–37.1; O2SAT 92–97
[2021-04-08] MEDS: lactulose oral liq 20 gm/30 mL UDC PO (00:16)
[2021-04-08] MEDS: D5-NS 0.45% + KCL 20 mEq 20 MEQ/1,000 ML BAG 50 MEQ IV ×2 (00:39→20:16)
[2021-04-08 03:32] LABS: INR 1.14 (0.8-1.2)
[2021-04-08 03:33] LABS: Partial Thromboplastin Time 28.4 SECONDS (23.9-36.7)
[2021-04-08 03:45] LABS: Phosphorus 2.7 mg/dL (2.5-4.5)
[2021-04-08 03:53] LABS: Carcinoembryonic Antigen 3.6 ng/mL (0.0-4.7)
[2021-04-08 04:04] LABS: Alanine Aminotransferase 10 U/L (0-33); Alkaline Phosphatase 113 IU/L (35-105); Anion Gap 14.6 (5-19); Aspartate Amino Transferase 20 U/L (0-32); Blood Urea Nitrogen 4 mg/dL (8-23); Carbon Dioxide 20 mmol/L (22-29); Chloride 95 mmol/L (98-107); Globulin 1.8 g/dL (1.3-4.6); Glucose 87 mg/dL (65-115); Lactate Dehydrogenase 597 U/L (135-214); Osmolality Calculated 256 mOsm/kg (285-295); Potassium 4.6 mmol/L (3.5-5.1); Sodium 125 mmol/L (136-145); Total Bilirubin 0.5 mg/dL (0.15-1.2); Total Protein 4.8 g/dL (6.6-8.7); Uric Acid 2.2 mg/dL (2.4-5.7)
[2021-04-08 04:34] LABS: CA 125 403.5 U/mL (0-35); Cancer Antigen 19 9 3.65 U/mL (0-35)
[2021-04-08] MEDS: levothyroxine 125 mcg Tablet PO (05:32)
--- NOTE | 2021-04-08 06:00 | US_ITS ---
WS: [id number] ULTRASOUND-GUIDED THERAPEUTIC AND DIAGNOSTIC PARACENTESIS Procedure, risks, and complications have been explained to the patient. Consent is obtained. Utilizing aseptic technique and 1% buffered lidocaine, a small dermatome was made through which a 5 F rench Yueh catheter was inserted. Approximately 2000 ml of clear peritoneal fluid was obtained witho ut difficulty. No complications encountered. Specimen collected for analysis as requested. US/US paracentesis abd [id number] IMPRESSION: Uncomplicated paracentesis yielding 2000 ml of peritoneal fluid. Peritoneal fluid collected for analysis as requested.
[2021-04-08 06:17] LABS: Glucose Point of Care 88 mg/dL (70-110)
--- NOTE | 2021-04-08 06:35 | PC.NURSE ---
Admit Note Around 2100 on 04/07/21: [facility]. Covering service notified. Patient presents with c/o constipation. Orders reviewed & will continue to monitor. Patient and/or major account representative oriented to environment, equipment, and informed of the following as found in the admission booklet: patient rights & responsibilities, visitor policy, hand and respiratory hygiene practice. Other education includes: IV pump education, activity restrictions, and dietary orders. Patient and/or major account representative Verbalized understanding of all teaching.
[2021-04-08 08:26] LABS: Urine Random Sodium 72 mmol/L
--- NOTE | 2021-04-08 08:45 | PC.NUTR ---
Nutrition Note: Pt was triggered for BMI due to height listed at 56 feet. Surmising height is 5'6 which would not trigger a low BMI. Will follow up with patient if needed or for LOS = 5 days.
[2021-04-08] MEDS: carvedilol 3.125 mg Tablet PO ×2 (09:41→18:09)
[2021-04-08] MEDS: atorvastatin 40 mg Tablet PO (09:41)
[2021-04-08] MEDS: docusate sodium 100 mg Capsule PO ×2 (09:41→18:09)
[2021-04-08] MEDS: pantoprazole DR 40 mg Tablet PO (09:41)
--- NOTE | 2021-04-08 10:10 | PC.CHAP ---
Pastoral Care Encounter/Spiritual Assessment Type of Contact [] Declined nurse staff community health visit [] Patient/Family/Request visit [] Outpatient visit [] Follow-up visit [] Physician referral [] Code/Alert [x] Routine visit [] Staff referral [] Actively dying [] Patient sleeping [] Family support [] [] Out of room [] Palliative care [] [x] Receiving care in room [] Pre-surgical visit [] Trauma [x] Long length of stay [] ICU visit [] Other: Relational/Emotional Strength [x] Patient feels connected with others/family/visitors/staff [] Distress [] Loneliness/isolation [] Abandonment Spirituality of Patient [x] Person of Crystal [] Attends Pentecostalism of their Crystal [x] Believes in Prayer [] Reads Bible or Yazidism materials [] There are Spiritual issues to be addressed Risk Tech Interventions [x] Prayer [x] Active listening [x] Non-anxious presence [x] Spiritual/emotional support [] Crisis/trauma care [x] Spiritual counseling [] Bereavement support [] Provided bereavement packet [] Provided Bible/devotional materials [] Provided toy/stuffed animal, coloring book to patient or family member [] Provided Communion [] Anointing/Causey [] Salvation [x] Completed spiritual assessment [] Other: Impact on Illness or Injury [] Angry [] Fearful [x] Anxious [] Often cries [] Exhaustion [x] Unable to work [] Unable to attend mormonism [] Unable to walk/stand [] Unable to read [] Unable to drive [] Unable to eat/drink [] Unable to sleep [] Unable to be with family [] Patient intubated [] Other: Summary Tests checking on her patassum level on anti bodies waiting on doctors report has a good attitude, wants to go home soon +1 daughter Time spent with patient
[2021-04-08 11:17] LABS: Creatinine Urine, Random 54 mg/dL (28-217)
[2021-04-08 12:45] LABS: Mononuclear #, Pertinoneal Fl 1.755 10^3/uL; Polynuclear # Cells, Perit 0.437 10^3/uL
[2021-04-08 12:52] LABS: Appearance, Peritoneal Fluid Hazy (Clear); Color, Peritoneal Fluid Pale Yellow (Pale Yellow)
[2021-04-08 12:53] LABS: RBC Pertioneal Fluid 3000 10^3/uL; WBC Peritoneal Fluid 2192 /uL
[2021-04-08 13:04] LABS: Albumin Peritoneal Fluid 2.3 g/dL; Total Protein Peritoneal Fluid 3.4 g/dL
[2021-04-08 13:05] LABS: Peritoneal Fluid Spec Gravity 1.015
[2021-04-08 18:40] LABS: Blood Urea Nitrogen 6 mg/dL (8-23); Calcium 7.9 mg/dL (8.5-10.5); Carbon Dioxide 25 mmol/L (22-29); Chloride 95 mmol/L (98-107); Glucose 81 mg/dL (65-115); Osmolality Calculated 263 mOsm/kg (285-295); Sodium 128 mmol/L (136-145)
[2021-04-08 18:42] LABS: Anion Gap 12.8 (5-19); Potassium 4.8 mmol/L (3.5-5.1)
--- NOTE | 2021-04-08 19:40 | P.DS_ITS ---
Discharge Providers Date of Admission: 04/07/21 19:10 Date of Discharge: April 08, 2021 Attending Provider at Admission: Luzmaria Ramesh MD Attending Provider at Discharge: Dalton Almaguer Primary Care Provider: SIRIA Callaway Diagnoses at Discharge Discharge Diagnosis (1) Constipation: Status: Acute Qualifiers: Constipation type: outlet dysfunction constipation Qualified Code(s): K59.02 - Outlet dysfunction constipation (2) Acute hyponatremia: Status: Acute (3) Ovarian mass: Status: Acute (4) Vaginal prolapse: Status: Acute (5) Memory problem: Status: Acute (6) Hypothyroid: Status: Chronic Qualifiers: Hypothyroidism type: acquired Qualified Code(s): E03.9 - Hypothyroidism, unspecified Reason for Visit Reason for Visit: PCP DX: [facility] Hospital Course Hospital Course 75-year-old lady with history of CAD, diastolic CHF, HLD, smoking addiction, hypothyroidism was placed in observation after presenting with constipation, abdominal distention, abdominal discomfort, poor appetite. CT abdomen pelvis in ER revealed large mass, 13.5 x 10.2 cm, solid and cystic suggestive of ovarian malignancy, diffuse omental caking throughout the abdomen suspected metastatic in origin, prominent fluid in the colon and small bowel, right lower lobe 2.8 cm spiculated masslike lesion, left lower lobe 9.5 mm spiculated nodule, emphysema, large ascites, hepatic steatosis, bilateral benign renal cysts, diverticulosis, 14 mm complex cystic lesion in the caudal tip of liver, possibly metastatic disease, moderate hiatal hernia. She was also noted to be hyponatremic, sodium 126. With noted also recently elevated TSH, 9.89. Free T3 checked and was low at 1.4. Free T4 1.47. Urine culture was sent with borderline urinalysis, 0-4 WBC, 2+ bacteria, negative nitrate. He did not have urinary symptoms, but with noted vaginal prolapse which was reduced on presentation. Extensive discussion took place with regards to finding of suspected metastatic cancer, possibly ovarian. Discussions took place with patient and her daughter, but also her granddaughter who is DPOA and is a nurse practitioner by profession. The consensus decision was to seek paracentesis to both give her relief, as well as allow for diagnostic testing. Cytology has been sent off, and is pending. Will need to be followed up. On analysis fluid noted hazy, with 2100 WBC, 3000 RBC. Cultures were sent as well, Gram stain was negative. She received albumin and gentle IV hydration. Her bowel regimen was escalated. Levothyroxine dose increased to 125 mcg. Sodium was rechecked and came up to 128 after paracentesis. For now spironolactone is discontinued as it may contribute to hyponatremia. She was feeling significantly better after paracentesis and was wanting to return home. Her family is very supportive, and multiple family live nearby, so somebody will be with her as per discussion. Discussing with her granddaughter, and with her, she is asked to follow-up with primary provider with regards to the results of cytology. Further consideration may be given depending on advance care goals whether to pursue additional diagnostics and treatment. She is otherwise asked to follow-up also with gynecology regarding vaginal prolapse and consideration of pessary. Please follow-up sodium levels in office. In 3 weeks please also follow-up thyroid function. Please assist her with bowel regimen. Please revisit smoking cessation. Physical Exam Narrative: EXAM NARRATIVE: Daughter at bedside. Const: COMMON NORMALS: no acute distress and alert GENERAL APPEARANCE: cooperative and comfortable ORIENTATION/CONSCIOUSNESS: Yes awake OTHER: Feels much better after paracentesis. Wants to return home. Denies any disc omfort at this time. HENMT: COMMON NORMALS: oropharynx normal Neck/C-Spine: COMMON NORMALS: no JVD Resp: COMMON NORMALS: normal respiratory effort and clear to auscultation bilaterally AUSCULTATION: clear to auscultation bilaterally Cardio: COMMON NORMALS: no JVD, regular rhythm, S1 normal heart sound present, S2 normal heart sound present and No murmurs present (Cardio) RHYTHM: regular rhythm HEART SOUNDS: S1 normal heart sound present and S2 normal heart sound present GI: COMMON NORMALS: Normal to inspection, nondistended, normoactive bowel sounds present, Soft to palpation and non-tender PALPATION: Yes Soft to palpation Extremity: COMMON NORMALS: no joint enlargement and no pedal edema Neuro: COMMON NORMALS: moves all extremities SENSORIUM/ORIENTATION: Yes alert Skin: COMMON NORMALS: no rashes or lesions noted GENERAL SKIN EXAM: no rashes or lesions noted Discharge Data Data Completed and Pending: Completed Studies During Hospitalization Category Date Time Status CT abdomen pelvis w con* [id number] Urge nt Cat Scan 04/07/21 17:22 Com[place] bd w [id number] Routine Ultrasound 04/08/21 06:00 Completed Pending at discharge Category Date Time Status Body Fluid Cultur e & GS Routine Lab 04/08/21 11:18 Results Urine Culture Sta t Lab 04/07/21 19:20 Received Cytology [PTH] Ro utine Pth 04/08/21 14:47 Received Labs from last 24 hours 04/08/21 04/08/21 04/08/21 17:30 11:18 11:18 PT INR APTT Sodium 128 L Potassium 4.8 Chloride 95 L Carbon Dioxide 25 Anion Gap 12.8 BUN 6 L Creatinine 0.5 GFR Calculation Not Reportable Glucose 81 POC Glucose Calculated Osmolal ity 263 L Uric Acid Calcium 7.9 L Phosphorus Magnesium Total Bilirubin AST ALT Alkaline Phosphata se Lactate Dehydrogen ase Total Protein Albumin Globulin Carcinoembryonic A g CA 19-9 Antigen CA 125 Antigen Urine Color Urine Appearance Urine pH Ur Specific Gravit y Urine Protein Urine Glucose (UA) Urine Ketones Urine Blood Urine Nitrate Urine Bilirubin Prot Sulfosalicyli c Acd Urine Urobilinogen Ur Leukocyte Eugenie ase Urine RBC Urine WBC Ur Squamous Epith Cells Amorphous Sediment Urine Bacteria Urine Mucus Urine Yeast Ur Random Sodium Urine Creatinine Peritoneal Color Cancelled Pale yellow Peritoneal Appeara nce Cancelled Hazy Peritoneal Spec Gr avity 1.015 Peritoneal WBC Cancelled 2192 Peritoneal RBC Cancelled 3000 Periton Mononu # A uto Cancelled 1.755 Mononuclear WBCs % Cancelled 80.100 Polynuclear WBCs % Cancelled 19.900 Perit Polynuc WBCs # Cancelled 0.437 Peritoneal Diff Co mmnt Cancelled Peritoneal Tot Pro tein Peritoneal Albumin 2.3 Peritoneal LDH 762.0 Peritoneal Glucose 82.0 04/08/21 04/08/21 04/08/21 11:18 09:35 07:45 PT INR APTT Sodium Potassium Chloride Carbon Dioxide Anion Gap BUN Creatinine GFR Calculation Glucose POC Glucose Calculated Osmolal ity Uric Acid Calcium Phosphorus Magnesium Total Bilirubin AST ALT Alkaline Phosphata se Lactate Dehydrogen ase Total Protein Albumin Globulin Carcinoembryonic A g CA 19-9 Antigen CA 125 Antigen Urine Color Urine Appearance Urine pH Ur Specific Gravit y Urine Protein Urine Glucose (UA) Urine Ketones Urine Blood Urine Nitrate Urine Bilirubin Prot Sulfosalicyli c Acd Urine Urobilinogen Ur Leukocyte Eugenie ase Urine RBC Urine WBC Ur Squamous Epith Cells Amorphous Sediment Urine Bacteria Urine Mucus Urine Yeast Ur Random Sodium 72 Urine Creatinine 54 Peritoneal Color Peritoneal Appeara nce Peritoneal Spec Gr avity Peritoneal WBC Peritoneal RBC Periton Mononu # A uto Mononuclear WBCs % Polynuclear WBCs % Perit Polynuc WBCs # Peritoneal Diff Co mmnt Peritoneal Tot Pro tein 3.4 Peritoneal Albumin Peritoneal LDH Peritoneal Glucose 04/08/21 04/08/21 04/08/21 06:10 03:00 03:00 PT INR APTT Sodium 125 L Potassium 4.6 Chloride 95 L Carbon Dioxide 20 L Anion Gap 14.6 BUN 4 L Creatinine 0.3 L GFR Calculation Not Reportable Glucose 87 POC Glucose 88 Calculated Osmolal ity 256 L Uric Acid 2.2 L Calcium 8.0 L Phosphorus 2.7 Magnesium 2.0 Total Bilirubin 0.5 AST 20 ALT 10 Alkaline Phosphata se 113 H Lactate Dehydrogen ase 597 H Total Protein 4.8 L Albumin 3.0 L Globulin 1.8 Carcinoembryonic A g 3.6 CA 19-9 Antigen 3.65 CA 125 Antigen 403.5 H Urine Color Urine Appearance Urine pH Ur Specific Gravit y Urine Protein Urine Glucose (UA) Urine Ketones Urine Blood Urine Nitrate Urine Bilirubin Prot Sulfosalicyli c Acd Urine Urobilinogen Ur Leukocyte Eugenie ase Urine RBC Urine WBC Ur Squamous Epith Cells Amorphous Sediment Urine Bacteria Urine Mucus Urine Yeast Ur Random Sodium Urine Creatinine Peritoneal Color Peritoneal Appeara nce Peritoneal Spec Gr avity Peritoneal WBC Peritoneal RBC Periton Mononu # A uto Mononuclear WBCs % Polynuclear WBCs % Perit Polynuc WBCs # Peritoneal Diff Co mmnt Peritoneal Tot Pro tein Peritoneal Albumin Peritoneal LDH Peritoneal Glucose 04/08/21 04/07/21 03:00 19:20 PT 15.00 H INR 1.14 APTT 28.4 Sodium Potassium Chloride Carbon Dioxide Anion Gap BUN Creatinine GFR Calculation Glucose POC Glucose Calculated Osmolal ity Uric Acid Calcium Phosphorus Magnesium Total Bilirubin AST ALT Alkaline Phosphata se Lactate Dehydrogen ase Total Protein Albumin Globulin Carcinoembryonic A g CA 19-9 Antigen CA 125 Antigen Urine Color Yellow Urine Appearance Clear Urine pH 8 H Ur Specific Gravit y 1.005 Urine Protein Neg Urine Glucose (UA) Norm Urine Ketones 1+ H Urine Blood Neg Urine Nitrate Negative Urine Bilirubin Neg Prot Sulfosalicyli c Acd Negative Urine Urobilinogen Neg Ur Leukocyte Eugenie ase 1+ H Urine RBC None Urine WBC 0-4 H Ur Squamous Epith Cells 0-4 H Amorphous Sediment Not Reportable Urine Bacteria 2+ H Urine Mucus 1+ Urine Yeast 1+ H Ur Random Sodium Urine Creatinine Peritoneal Color Peritoneal Appeara nce Peritoneal Spec Gr avity Peritoneal WBC Peritoneal RBC Periton Mononu # A uto Mononuclear WBCs % Polynuclear WBCs % Perit Polynuc WBCs # Peritoneal Diff Co mmnt Peritoneal Tot Pro tein Peritoneal Albumin Peritoneal LDH Peritoneal Glucose Vitals: Last Vital Signs Temp 98.7 F 04/08/21 19:35 Pulse 65 04/08/21 19:35 Resp 17 04/08/21 19:35 BP 91/51 04/08/21 19:35 Pulse Ox 97 04/08/21 19:35 Discharge Plan Discharge Patient Disposition: Home Condition: Stable Prescriptions: New levothyroxine 125 mcg Tablet 125 mcg PO QAM Qty: 30 RF: 0 Metamucil 0.4 gram capsule 0.4 g PO DAILY Qty: 30 RF: 0 Continued cholecalciferol (vitamin D3) 75 mcg (3,000 unit) tablet 75 mcg PO DAILY RF: 0 aspirin [Adult Low Dose Aspirin] 81 mg tablet,delayed release (DR/EC) 81 mg PO DAILY Qty: 90 RF: 3 atorvastatin 40 mg tablet 40 mg PO DAILY Qty: 90 RF: 3 clopidogrel 75 mg tablet 75 mg PO DAILY Qty: 90 RF: 3 enalapril maleate 5 mg tablet 5 mg PO BID Qty: 180 RF: 3 carvedilol 3.125 mg tablet 3.125 mg PO BID RF: 0 Discontinued levothyroxine 112 mcg tablet 112 mcg PO DAILY Qty: 90 RF: 3 spironolactone 25 mg tablet 25 mg PO DAILY RF: 0 Discharge Orders: Discharge Order (Routine); Ordered 04/08/21 Ordered By: Dalton Almaguer Referrals: Eulogio Siddiqui MD [Physician] - (1st available new appoint for evaluation for pessary for newly identified vaginal prolapse (if not referred to STORAGE ENGINEER/Oncology who could also address)) Cheryl Shafer FNP [Primary Care Provider] - 4-7 days (hospital follow up) Discharge Diet: Advance as tolerated Discharge Activity: Increase activity as tolerated Patient Instructions: Malignant Ascites, Constipation (GEN), Hyponatremia (GEN), Hypothyroidism (GEN) Activity Restrictions/Additional Instructions: Please follow-up with your primary doctor to follow-up on results of cytology from the fluid from your belly to help identify the type of cancer you have. Please also have your primary doctor reassess sodium level. Your sodium level has been low in the past week. This may put you at risk of losing her balance, falling down, feeling weak, or even confused. Please do not limit salt intake in your diet. Please hold spironolactone at this time as well as it can worsen low sodium level. Your sodium prior to discharge is better at 128. Please have your primary doctor recheck your thyroid function in 3 weeks as well due to noted elevated TSH, low T3. Your levothyroxine dose is adjusted to 125 mcg/day. Please note a urine culture has been sent out from the ER. Please have your primary doctor follow-up the results in several days to see if there are any concerns for urinary tract infection. Continue oral diet as tolerated. Add fiber to diet. Please follow-up with gynecology in office with regards to vaginal prolapse and to discuss pessary. Discharge Attestations Time Spent in Discharge Care*: greater than 30 min Quality Metrics Clinical Quality Measures During this hospital stay, did patient experience: None Coding Level of Care Code Acute Chg FW DC note Diagnoses Constipation K59.02 Constipation type: outlet dysfunction constipation Acute hyponatremia E87.1 Ovarian mass N83.8 Vaginal prolapse N81.10 Memory problem R41.3 Hypothyroid E03.9 Hypothyroidism type: acquired
--- NOTE | 2021-04-08 21:01 | PC.NURSE ---
This nurse contacted Dr. Almaguer after recieving D/C orders to inform him that Pt Bp was 91/51. Dr. Marlow ordered 25% Albumin 50 ml bolus and to recheck BP in one hour if systolic was greater than 110 to proceed with discharge. Nurse informed family that provider had ordered albumin before discharge and family insisted another BP check to confirm before albumin was given as family did not want albumin unless necessary. BP was 112/[address] Ramesh the night time hospitalist confirmed that albumin was not indicated since BP had improved.
--- NOTE | 2021-04-08 21:28 | PC.NURSE ---
Pt provided discharge paperwork, IV access removed and pressure dressing applied, Pt escorted off the floor with all personal belongings by wheel chair to surgical entrance and assisted into pt daughter's personal vehicle.
--- NOTE | 2021-04-09 13:16 | PC.SOCIAL ---
called patient earlier this morning spoke to patient and daughter. they were both concerned about patient seeing oncology. i let them know i would work on this and work on getting an appointment scheduled with patients pcp. I called back and they had already scheduled an appointment with her pcp and the primary is working on a referral to oncology. Patient at this time wishes to not follow up with Dr. Siddiqui regarding vaginal prolapse.
== END 2021-04-08 21:30 | disposition home or self-care (01) ==
LOC: ER 19:25 → MEDSURG 20:02
PROVIDERS: Emergency Medicine; Admitting Provider Hospitalist; Emergency Provider Emergency Medicine; PCP Nurse Practitioner Family; Visit Provider Internal Medicine
DX: K59.02 Outlet dysfunction constipation (principal); E87.1 Hypo-osmolality and hyponatremia; N83.8 Other noninflammatory disorders of ovary, fallopian tube and broad ligament; N81.10 Cystocele, unspecified; R41.3 Other amnesia; E03.9 Hypothyroidism, unspecified; N39.0 Urinary tract infection, site not specified; I25.10 Atherosclerotic heart disease of native coronary artery without angina pectoris; I11.0 Hypertensive heart disease with heart failure; I50.30 Unspecified diastolic (congestive) heart failure; E78.5 Hyperlipidemia, unspecified; Z79.82 Long term (current) use of aspirin; E55.9 Vitamin D deficiency, unspecified; F17.210 Nicotine dependence, cigarettes, uncomplicated; R18.8 Other ascites; B95.8 Unspecified staphylococcus as the cause of diseases classified elsewhere; K57.30 Diverticulosis of large intestine without perforation or abscess without bleeding; K44.9 Diaphragmatic hernia without obstruction or gangrene
CPT/HCPCS: 36415; 36416; 49083; 74177; 80048; 80053; 80500; 81001; 82042; 82378; 82575; 82945; 82962; 83615; 83690; 83735; 84100; 84157; 84300; 84315; 84439; 84481; 84484; 84550; 85025; 85610; 85730; 86301; 86304; 87070; 87075; 87077; 87086; 87186; 87205; 88112; 88305; 89050; 93005; 96361; 96365; 96366; 96367; 96375; 99285; G0378; J3490; J7030; Q9967

== ENCOUNTER 2021-04-13 10:37 | Outpatient (CLI) | payer MEDICARE, SELFPAY ==
--- NOTE | 2021-04-13 14:33 | ONC CON_ITS ---
Dr. Coilndres New Patient Note Patient: Nissa Long Unit #: [id number]: [id number] Dicatated By: Agus Colindres M.D.Date of Visit: Apr 13, 2021 Onc MED New Patient/Consult Referring Physician: No 'Referrals from' exist for this patient. History of Present Illness: Ethan Duke, is a 75-year-old female with a history of coronary artery disease, diastolic congestive heart failure, hypothyroidism, chronic smoking went to [facility] on April 07, 2021 with progressive abdominal distention due to chronic constipation and on April 07, [address] scan of abdomen pelvis which showed 13.5 x 10.2 cm solid and cystic masslike lesion is seen which may be part of the same process suggestive of ovarian malignancy. Diffuse omental caking seen throughout the abdomen anteriorly likely reflecting metastatic disease. Prominent fluid in the colon and small bowel without dilation may reflect enterocolitis. Right lower lobe 2.8 cm spiculated masslike lesion along with a left lower lobe 9.5 mm spiculated nodule. Emphysema changes. Large amount of ascites in the abdomen. Hepatic steatosis. 14 mm mildly complex cystic lesion in the caudal tip of liver may reflect metastatic disease. Diverticulosis without diverticulitis. Bilateral benign renal cysts. Moderate hiatal hernia., Patient was admitted to hospital, underwent paracentesis on April 08, 2021 and cytology report shows acute and chronic inflammatory changes with reactive mesothelial cells. No malignancy identified. As per patient she was doing reasonably well until about 3 weeks prior to admission to the hospital on April 07, 2021 when she experienced progressive constipation and went to [facility] clinic in [place], [facility] x-ray of abdomen shows severe constipation and she was given MiraLAX and GoLYTELY but without any improvement and eventually on April 07, [address] [facility], further as mentioned above. Patient denies any history of vaginal bleeding, denies any history of melena or hematochezia, denies any history of hemoptysis and hematemesis. Denies any weight loss in the past but recently. Denies any jaundice, denies any hematuria, denies any night sweats. Past Medical History: Ms. Kwoks medical history consists of coronary artery disease, hypertension, and hypothyroidism. Past Surgical History: Ms. Cr surgical/procedural history consists of CORONARY ARTERY STENT PLACEMENT. Medications: Aspirin 81 1 Tablet (of 81 mg) Tablet, chewable Oral daily, Atorvastatin Calcium 1 Tablet (of 40 mg) Oral daily, Carvedilol 1 Tablet (of 3.125 mg) Oral b.i.d., Cholecalciferol 1 Tablet (of 25 mcg ) Capsule Oral daily, Clopidogrel Bisulfate 1 Tablet (of 75 mg) Oral daily, Enalapril Maleate 1 Tablet (of 5 mg) Oral b.i.d., Levoxyl 1 Tablet (of 125 mcg) Oral daily Allergies: No Known Allergies. Social History: Ms. Long is . She is a daily smoker who has smoked 1.0 pack/day for 35 years. She has no history of drinking. Family History: Ms. Long's mother is . Ms. Long's father is . Review Of Symptoms: Review of Systems is not available for this patient. Vital Signs: Performed on Apr 13, 2021 11:25: 0, 20.27, 1.64 sq.m, 66 in, 94 % (LOW), 65 /min, 18 /min, 98/61 mm(hg), 97.0 F (LOW), and 125.6 lbs (HIGH). Performance Status: 0 - Fully active, able to carry on all predisease activities without restrictions. (ECOG) Physical Examination: ENMT - No mouth sores, no thrush, no jaundice, Respiratory - Lungs are clear to auscultation, Cardiovascular - Regular rate and rhythm of heart, Abdomen - Soft, bowel sounds present, no rebound tenderness but pelvic mass palpable nontender, Extremities - No visible edema. Lab/Imaging: Most recent lab results are not available for this patient. Impression: Ascites/abdominal pelvic mass/right lower lobe Spiculated mass per CT scan of abdomen pelvis done on April 07, 2021, etiology most likely reproductive malignancy like ovarian carcinoma but paracentesis done on April 08, 2021 was negative. And tumor markers CA-125 was more than 400 And her right lower lobe lung lesion could be secondary malignancy e.g. lung cancer or metastatic disease CT scan of abdomen pelvis done on April 07, 2021 showed 13.5 x 10.2 cm solid and cystic masslike lesion, which may be part of same process suggestive of an ovarian malignancy. Diffuse omental caking seen throughout the abdomen anteriorly. Prominent fluid in the colon and small bowel without dilation. Right lower lobe 2.8 cm spiculated masslike lesion along with left lower lobe 9.5 mm spiculated lesion. Emphysematous changes. Large amount of ascites in abdomen. Hepatic steatosis and 14 mm mildly complex cystic lesion in the caudate tip of liver may reflect metastatic disease. Moderate hiatal hernia Chronic smoking Emphysema Hypothyroidism Plan: Discussed with patient regarding her peritoneal fluid cytology which showed no evidence of malignancy but acute and chronic inflammatory changes with reactive mesothelial cell. And CT scan of abdomen pelvis Done on April 08, 2021 findings which showed extensive disease bulk of disease in the abdomen/pelvis questionable lesion in the liver and right lower lobe lung mass could be metastatic disease or being spiculated could be a second primary.And her tumor marker CA 125 was more than 400, indicating reproductive system primary like ovarian At this point, we will refer her to [facility] surgical oncologist Dr. Henry in [place] for evaluation and diagnostic paracentesis or omental biopsy and evaluation for upfront cytoreduction versus upfront systemic chemotherapy followed by surgical evaluation. Clinically, patient is comfortable after paracentesis, has no obvious signs symptom. Patient will return to clinic after [facility] surgical evaluation at [place] for further evaluation discussion Signed By: Agus Colindres M.D. <<Signature on File>>
== END 2021-04-13 10:38 | disposition home or self-care (01) ==
LOC: ONCMED 10:45
PROVIDERS: PCP Nurse Practitioner Family; Visit Provider Internal Medicine Hematology & Oncology
DX: R18.8 Other ascites (principal); F17.210 Nicotine dependence, cigarettes, uncomplicated; J43.9 Emphysema, unspecified; E03.9 Hypothyroidism, unspecified; Z79.899 Other long term (current) drug therapy
CPT/HCPCS: 99205

== ENCOUNTER → 2021-04-14 00:01 | Outpatient (BNVA) | payer MEDICARE, SELFPAY | PROVIDERS: PCP Nurse Practitioner Family; Visit Provider Family Medicine | DX: E87.1 Hypo-osmolality and hyponatremia (principal); N83.8 Other noninflammatory disorders of ovary, fallopian tube and broad ligament | CPT/HCPCS: 80053 ==

== ENCOUNTER → 2021-04-28 14:15 | Day surgery (SDC) | payer MEDICARE, SELFPAY ==
--- NOTE | 2021-04-28 14:26 | US_ITS ---
WS: [id number] ULTRASOUND ABDOMEN LIMITED CLINICAL INFORMATION: ascites COMPARISON: None. FINDINGS: Ascites: Moderate ascites US/US abdomen limited [id number] IMPRESSION: Ultrasound used for paracentesis marking
[2021-04-28 14:29] VITALS: BP 100/57; PULSE 72; RESP 20; TEMP 35.9; O2SAT 95; BMI 21.8
== END ==
PROVIDERS: PCP Nurse Practitioner Family; Visit Provider Internal Medicine
DX: R18.8 Other ascites (principal)
CPT/HCPCS: 49082; 76705

== ENCOUNTER 2021-05-12 12:27 | Outpatient (CLI) | payer OTHER, MEDICARE, SELFPAY ==
--- NOTE | 2021-05-12 12:45 | US_ITS ---
WS: [id number] ULTRASOUND-GUIDED THERAPEUTIC PARACENTESIS Procedure, risks, and complications have been explained to the patient. Consent is obtained. Utilizing aseptic technique and 1% buffered lidocaine, a small dermatome was made through which a 5 F rench Yueh catheter was inserted. Approximately 4200 ml of clear peritoneal fluid was obtained witho ut difficulty. No complications encountered. US/US paracentesis abd w [id number] IMPRESSION: Uncomplicated paracentesis yielding 4200 ml of peritoneal fluid.
[2021-05-12 12:51] VITALS: BP 103/65; PULSE 63; RESP 18; TEMP 36.2; O2SAT 95
[2021-05-12 13:16] LABS: INR 1.03 (0.8-1.2)
--- NOTE | 2021-05-12 13:59 | SUR.OPER ---
1335 Dr Garcia at bedside to perform US guided paracentesis. 10 mL 1% lidocaine used as local to LLQ prior to procedure. Pt draining clear dashawn fluid. Tolerating well.
[2021-05-12 14:25] VITALS: BP 96/55; PULSE 70; RESP 18; O2SAT 91
== END 2021-05-12 12:28 | disposition home or self-care (01) ==
LOC: GILAB 12:31
PROVIDERS: PCP Nurse Practitioner Family; Visit Provider Nurse Practitioner Family
DX: C80.1 Malignant (primary) neoplasm, unspecified (principal); R18.0 Malignant ascites
CPT/HCPCS: 36415; 49083; 85610

== ENCOUNTER → 2021-05-14 08:55 | Outpatient (BNVA) | payer OTHER, MEDICARE, SELFPAY | PROVIDERS: PCP Nurse Practitioner Family; Referring Provider Internal Medicine; Visit Provider Surgery | DX: Z20.822 Contact with and (suspected) exposure to COVID-19 (principal); Z11.52 Encounter for screening for COVID-19 | CPT/HCPCS: 87635 ==

== ENCOUNTER 2021-05-17 09:36 | Day surgery (SDC) | payer OTHER, MEDICARE, SELFPAY ==
[2021-05-14 18:08] VITALS: BMI 21.8
--- NOTE | 2021-05-14 18:13 | SUR.PREOP ---
texted dr quintanilla and he wanted pt to stop plavix and daughter already told me that she would not give this medication to her mother due to having a invasive procedure before and had excessive bleeding because plavix wasn't held
[2021-05-17] VITALS (7 sets, daily range): BP systolic 82–105; BP diastolic 49–66; PULSE 67–73; RESP 16–18; TEMP 36.1–36.5; O2SAT 91–98
--- NOTE | 2021-05-17 12:12 | ANES.PREANE2 ---
Pre-Anesthetic Assessment Pre-Anesthetic Assessment: Height/Weight: Height 1.65 m Weight 59.421 kg Preop Diagnosis: Malignant ascites Proposed Procedure: Operation Date: 05/17/21 12:05 Proposed Procedures p Peritoneal Catheter Insertion 24608 R18.0(Not Applicable) - Tank Delacruz MD Familial anesthetic complications: None Was Beta Kaila taken within 24 hours: Yes Was Clonidine taken within 24 hours: N/A Last intake: > 8 hrs Social: Social History: Tobacco and No alcohol Exam: Pre-Anes Outpt Exam: alert, oriented x 3, clear to auscultation bilaterally and regular rate & rhythm Airway: Cervical ROM: WNL MP: 2 Dentition: False CV/HEM: CV/HEM: CAD (stents 2011), CHF and HTN Hepatic: Comments: malignant ascites (ovarian) Metabolic: Metabolic: Hyperlipidemia and Thyroid Anesthetic Plan: ASA status: 4 Anesthesia: General Risk of > 500 ml blood loss (7ml/kg in children): No PFSH Anesthesia PFSH: Medical History Atherosclerosis of coronary artery of redding heart without angina pectoris Benign essential HTN Congestive heart failure EF 55% last echocardiogram with grade 1 diastolic dysfunction Dyslipidemia Hyperlipidemia Hypothyroid Vitamin D deficiency Surgical History History of percutaneous coronary intervention (~2011) Family History Brother Cancer unknown kind CAD (coronary artery disease) Social History Alcohol intake: never Lives independently: Yes Household members: other Details: daughters live nearby service: No Current occupational status: employed Current occupation: works at [employer] in [facility] Current gender identity: Female Special sherry needs: No Agree to transfusion: Yes Data Anesthesia Cardiac Studies: No Data to Display
--- NOTE | 2021-05-17 12:18 | W.PM.OPSUD ---
Surgery/Procedure H&P Update DATE OF PROCEDURE: May 17, 2021 DATE H&P PERFORMED: 05/14/21 H&P UPDATE INFORMATION: I have reviewed H&P completed within last 30 days, I have examined patient prior to procedure and No changes to prior documentation PREOP DIAGNOSIS: Malignant ascites PLANNED PROCEDURE: Operation Date: 05/17/21 12:05 Proposed Procedures p Peritoneal Catheter Insertion 19110 R18.0(Not Applicable) - Tank Delacruz MD
[2021-05-17] MEDS: sodium chloride 0.9% 1,000 ML 30 ML IV (12:20)
--- NOTE | 2021-05-17 14:21 | PM.OP ---
Operative Report Date of procedure: May 17, 2021 Pre-op Diagnosis: Malignant ascites from ovarian cancer Post-op diagnosis: same Procedure Done: Placement of peritoneal catheter for ascites Ultrasound guidance and interpretation for placement of catheter Pathology: none sent Surgeon: Tank Delacruz Anesthesia: MAC Condition: stable Disposition: PACU Procedure: The patient was taken to the operating room and placed under MAC after IV antibiotic had been administered. The abdomen was prepped and draped in a sterile manner. Using ultrasound probe the site of planned entry was marked in the right lower quadrant and 1% lidocaine with 0.5% Marcaine was infiltrated into the skin and subcutaneous tissue. An introducer needle was used to access the ascites and ultrasound guidance, a guidewire was passed and the introducer needle was removed. Using 11 blade a stab incision was made and dilator sheath was passed over the guidewire into the peritoneal cavity and the inner dilator and guidewire was removed. A pigtail catheter was introduced into the peritoneal cavity as the peel-away sheath was removed and the proximal end of the catheter was attached to the tunneler and passed laterally in the subcutaneous plane and exited through a stab incision, thus ensuring that both the cuffs were in the subcutaneous space. There was free drainage of ascites noted. Stab incision was closed using 4-0 Monocryl and Dermabond and the catheter was covered with sterile dressings. The patient was transferred to recovery room in stable condition.
--- NOTE | 2021-05-17 15:18 | ANE.PACU2 ---
Inpatient post-anesthesia follow up: Airway intact: Yes Vital signs: Temperature 97.7 F Pulse Rate 67 Respiratory Rate 17 Blood Pressure 96/58 Pulse Oximetry 92 Oxygen Delivery Me thod Room Air Oxygen Flow Rate 2 Fraction of Inspir ed Oxygen Hydration adequate: Yes Nausea and vomiting: No Pain level: 2 Mental status: Baseline
== END 2021-05-17 14:22 | disposition home or self-care (01) ==
PROVIDERS: PCP Nurse Practitioner Family; Visit Provider Surgery
PROC: (CPT 49406; principal; 2021-05-17 11:55)
DX: C56.9 Malignant neoplasm of unspecified ovary (principal); R18.0 Malignant ascites; Z95.5 Presence of coronary angioplasty implant and graft; I11.0 Hypertensive heart disease with heart failure; I50.9 Heart failure, unspecified; E78.5 Hyperlipidemia, unspecified; I25.110 Atherosclerotic heart disease of native coronary artery with unstable angina pectoris; E03.9 Hypothyroidism, unspecified; E55.9 Vitamin D deficiency, unspecified; Z79.82 Long term (current) use of aspirin
CPT/HCPCS: 49406; C1750; J0690; J2250; J2370; J2704; J3010; J3490; J7030